=== PATIENT | female | born 1940 | race Hispanic/Latino ===

== ENCOUNTER → 2019-03-06 | Outpatient (CLI) | payer OTHER, MEDICARE ==
[~2019-03-06] MED LIST: ASCO500C6 PO; CALCIUM PLUS D3 PO; DOCU-275 PO; FISH1CAP63 PO; FURO20TA4 PO; GABA-529 PO; GLUCOSAMINE PO; HYDR-4060 PO; IBUP-2070 PO; OMEP40CA13 PO; OXYBUTYNIN PO; PRAV40TA3 PO; SIME125C92 PO; VITA-164 PO
== END | disposition home or self-care (01) ==
LOC: RAH 13:21
PROVIDERS: ATTEND Family Medicine
DX: Z12.31 Encounter for screening mammogram for malignant neoplasm of breast (principal)
CPT/HCPCS: 77067

== ENCOUNTER → 2020-01-14 | Outpatient (CLI) | payer OTHER, MEDICARE ==
[~2020-01-14] MED LIST changes: +SIME-12 PO; -SIME125C92 PO
== END | disposition home or self-care (01) ==
LOC: SHCH 12:33
PROVIDERS: ATTEND Internal Medicine Cardiovascular Disease
DX: I87.2 Venous insufficiency (chronic) (peripheral) (principal)
CPT/HCPCS: 93306; 93356; 93970

== ENCOUNTER → 2020-01-16 | Outpatient (CLI) | payer OTHER, MEDICARE ==
[~2020-01-16] VITALS: Ht 152.4 cm; Wt 106.1 kg
[~2020-01-16] MED LIST changes: +REGADENOSON 0.4 MG/5 ML PF SYG IVP SCH
== END | disposition home or self-care (01) ==
LOC: SHCH 07:56
PROVIDERS: ATTEND Internal Medicine Cardiovascular Disease
DX: R07.9 Chest pain, unspecified (principal)
CPT/HCPCS: 78452; 93017; A9500 ×2; J2785; 96374

== ENCOUNTER → 2020-03-09 | Outpatient (CLI) | payer OTHER, MEDICARE ==
[~2020-03-09] MED LIST changes: -REGADENOSON 0.4 MG/5 ML PF SYG IVP SCH
== END | disposition home or self-care (01) ==
LOC: RAH 13:16
PROVIDERS: ATTEND Family Medicine
DX: Z12.39 Encounter for other screening for malignant neoplasm of breast (principal); R92.2 Inconclusive mammogram
CPT/HCPCS: 77067

== ENCOUNTER → 2021-10-25 | Outpatient (CLI) | payer OTHER ==
[~2021-10-25] MED LIST changes: +DOCU-270 PO; -DOCU-275 PO; -OMEP40CA13 PO; +OMEP40CA21 PO
[2021-10-25 12:50] LABS: CREATININE 0.5 mg/dL (0.5-1.5); POTASSIUM 3.7 mmol/L (3.5-5.1)
== END | disposition home or self-care (01) ==
LOC: LAB 11:48
PROVIDERS: ATTEND Physician Assistant
DX: I10 Essential (primary) hypertension (principal)
CPT/HCPCS: 36415; 80048

== ENCOUNTER → 2023-04-12 | Outpatient (CLI) | payer OTHER ==
[~2023-04-12] MED LIST changes: -VITA-164 PO; +VITA-348 PO
== END | disposition home or self-care (01) ==
LOC: RAH 13:47
PROVIDERS: ATTEND Family Medicine
DX: Z12.31 Encounter for screening mammogram for malignant neoplasm of breast (principal); N64.89 Other specified disorders of breast
CPT/HCPCS: 77067

== ENCOUNTER → 2023-05-08 | Outpatient (CLI) | payer OTHER | END | disposition home or self-care (01) | LOC: RAH 13:03 | PROVIDERS: ATTEND Family Medicine | DX: R92.322 Mammographic fibroglandular density, left breast (principal); N64.89 Other specified disorders of breast | CPT/HCPCS: 76641; 77065 ==

== ENCOUNTER → 2023-06-07 | Outpatient (CLI) | payer OTHER ==
[2023-06-07 09:53] LABS: INR 0.94 (0.85-1.15); PROTHROMBIN TIME 10.9 SEC (9.6-11.6)
[2023-06-07 09:54] LABS: PARTIAL THROMBOPLASTIN TIME 28.5 SEC (26.3-35.5)
== END | disposition home or self-care (01) ==
LOC: RAH 09:17
PROVIDERS: ATTEND Family Medicine
DX: N63.22 Unspecified lump in the left breast, upper inner quadrant (principal); C50.212 Malignant neoplasm of upper-inner quadrant of left female breast; Z79.01 Long term (current) use of anticoagulants
CPT/HCPCS: 19083; 85610; 85730; 88361; 36415; 88305; A4215 ×2; A4648

== ENCOUNTER → 2024-02-16 | Outpatient (CLI) | payer OTHER, MEDICARE ==
[~2024-02-16] MED LIST changes: +ASCO500C19 PO; -ASCO500C6 PO
== END | disposition home or self-care (01) ==
LOC: SHCH 13:19
PROVIDERS: ATTEND Internal Medicine Cardiovascular Disease
DX: I35.0 Nonrheumatic aortic (valve) stenosis (principal)
CPT/HCPCS: 93306